=== PATIENT | male | born 1970 | race Two or more races ===

== ENCOUNTER 2024-12-27 20:30 | Emergency (ER) | payer SELFPAY ==
--- NOTE | ~2024-12-27 | XR_ITS ---
Portable chest x-ray Comparison: 12/27/2024 at 12:01 AM Clinical History: Chest pain Findings: Lungs are clear, without focal consolidation or pleural effusion. Cardiomediastinal silho uette is stable. Bones and soft tissues are unremarkable. Impression: Clear lungs. Reviewed, dictated and finalized at location . NCT WRITING INSTRUCTOR Impression: Clear lungs.
--- NOTE | 2024-12-27 20:32 | ECG_ITS ---
Test Date: 2024-12-27 20:48:46 Measurements Intervals [place] Rate: 81 P: 49 NC: 168 QRS: 27 QRSD: 95 T: 44 QT: 354 QTc: 411 Interpretive Statements SINUS RHYTHM INCOMPLETE RIGHT BUNDLE BRANCH BLOCK [90+ ms QRS DURATION, TERMINAL R IN V1/V2, 40+ ms S IN I/aVL/V4/V5/V6] Compared to ECG 12/26/2024 23:19:42 No significant changes Electronically Signed On 12-27-2024 21:58:42 [employer] by Delon Gonzalez M.D.
[2024-12-27 20:40] VITALS: BP 129/86; PULSE 87; RESP 19; TEMP 36.5; O2SAT 99
[2024-12-27 21:03] LABS: Basophils Absolute Auto 0.1 K/mm3 (0.0-0.1); Basophils Percent Auto 0.7 % (0.2-1.2); Eosinophils Absolute Auto 0.4 K/mm3 (0-0.3); Hematocrit 45.7 % (42.0-52.0); Hemoglobin 15.1 g/dL (14.0-18.0); Immature Granulocyte Absolute 0.04 K/mm3 (0.00-0.031); Immature Granulocyte Percent A 0.4 % (0-0.5); Lymphocytes Absolute Auto 3.57 K/mm3 (0.9-3.2); Lymphocytes Percent Auto 36.6 % (18.3-44.2); Mean Corpuscular Hemoglobin 28.8 pg (26-34); Monocytes Absolute Auto 0.7 K/mm3 (0.1-0.6); Monocytes Percent Auto 7.6 % (2.6-8.5); Neutrophils Percent Auto 50.7 % (45.5-73.1); Platelet Count Result 281 k/mm3 (150-375); Red Blood Count 5.25 M/mm3 (4.6-6.20); Red Cell Distribution Width 13.8 % (11.5-14.5); White Blood Count 9.8 K/mm3 (4.5-10.0)
[2024-12-27 21:16] LABS: Prothrombin Time 13.5 Seconds (11.1-14.7)
[2024-12-27 21:32] LABS: Alanine Aminotransferase 21 U/L (6-50); Albumin Level 4.4 g/dL (3.5-5.1); Alkaline Phosphatase 73 U/L (38-126); Anion Gap 12 mmol/L (4-12); Aspartate Amino Transferase 22 U/L (17-59); Bilirubin,Total 0.5 mg/dL (0.2-1.3); Blood Urea Nitrogen 18 mg/dL (9-20); Calcium 8.7 mg/dL (8.4-10.2); Carbon Dioxide 29 mmol/L (22-30); Chloride 100 mmol/L (98-107); Estimated CRCL calculation 116 ml/min; Estimated Glomerular Filt Rate > 60; Glucose 147 mg/dL (65-110); Lipase 99 U/L (23-300); Potassium 4.2 mmol/L (3.4-5.0); Sodium 141 mmol/L (137-145)
[2024-12-27 21:43] LABS: Troponin I < 0.012 ng/mL (0.000-0.034)
--- NOTE | 2024-12-27 23:25 | ED.CHESTPAIN ---
HPI - Chest Pain General Chief Complaint: Chest Pain Stated Complaint: Chest pain, left arm numbness, cough Time Seen by Provider: 12/27/24 22:52 Source: patient Mode of arrival: ambulatory Limitations: no limitations History of Present Illness HPI narrative: Patient is a 54-year-old male who presents the ED with report of left-sided chest pain. Patient reports pain has been intermittent over the last 2 years. He has not been seen previously for this pain. Described as pressure in his left-sided chest. Does radiate into his arm. Pain is typically worse with movement/raising of his left arm. Has been taking aspirin for the pain this week which does provide some improvement. States pain became worse yesterday. He presented to the ED yesterday and had a workup performed, but patient left without being seen by a provider. Returned today for evaluation. Does report recent cough over the last few days. Denies shortness of breath. Denies fevers. Denies lower extremity pain or swelling. Denies previous history of heart disease or blood clots. Related Data Allergies Allergy/AdvReac Type Severity Reaction Status Date / Time No Known Allergies Allergy Verified 12/27/24 23:46 Review of Systems Review of Systems: All systems reviewed & are unremarkable except as noted in HPI. All systems reviewed & are unremarkable except as noted in HPI and below Exam Narrative: GENERAL: Well appearing, obese with BMI of 31.7, non-toxic, in no acute distress. HEAD: Normocephalic, atraumatic. RESPIRATORY: Airway patent, respirations nonlabored. Clear to auscultation bilaterally, no rales, rhonchi, wheezing. CARDIOVASCULAR: Regular rate and rhythm without murmurs, rubs, or gallops. MUSCULOSKELETAL: Moves all extremities. No gross deformities. No peripheral edema. No calf tenderness. Mild tenderness to palpation over left anterior chest wall and left upper arm. SKIN: Warm, dry, normal color. NEURO: A&O X3. Speech clear. Cranial nerves II-XII grossly intact. No ataxic movements. PSYCHIATRIC: Appropriate mood and affect. Normal interaction. Course Vital Signs Vital signs: Vital Signs Temperature 97.7 F 12/27/24 20:40 Pulse Rate 87 12/27/24 20:40 Respiratory Rate 19 12/27/24 20:40 Blood Pressure 129/86 12/27/24 20:40 Pulse Oximetry 99 12/27/24 20:40 Oxygen Delivery Room Air 12/27/24 20:40 Temperature 97.7 F 12/27/24 20:40 Pulse Rate 83 12/28/24 01:04 Respiratory Rate 17 12/28/24 01:04 Blood Pressure 142/69 H 12/28/24 01:04 Pulse Oximetry 99 12/28/24 01:04 Oxygen Delivery Room Air 12/27/24 23:52 MDM - Chest Pain MDM Narrative Medical decision making narrative: Patient presented to ED with left-sided chest and left arm pain that has been present intermittently over the last 2 years. Pain worsening yesterday. Patient presented to the ED yesterday, but left without being seen. EKG with incomplete right bundle, no concerning ST changes. Troponin negative. Troponin yesterday was also undetectable. D-dimer within normal range. Chest x-ray interpreted by myself without acute focal findings. Remainder of basic laboratory studies are unremarkable. Patient with HEART score of 2 based on age and BMI. Discussed high likelihood of musculoskeletal etiology. Very low suspicion for ACS at this time given prolonged nature of sx's, worse with movement, reproducible, overall reassuring w/u yesterday and today. Recommended that patient have follow-up with PCP for further evaluation/further outpatient testing. Given strict return precautions. Patient and family in agreement with plan. Discharged in stable condition. Medical Records Data Attestation: I reviewed the patient's medical records. Lab Data Attestation: I reviewed the patient's lab results. 12/27/24 20:55 12/27/24 20:55 Labs: Lab Results 12/27/24 Range/Units 20:55 WBC 9.8 (4.5-10.0) K/mm3 RBC 5.25 (4.6-6.20) M/mm3 Hgb 15.1 (14.0-18.0) g/dL Hct 45.7 (42.0-52.0) % MCV 87.0 (80-100) fl MCH 28.8 (26-34) pg MCHC 33.0 (32-36) g/dl RDW 13.8 (11.5-14.5) % Plt Count 281 (150-375) k/mm3 MPV 9.0 (7.4-10.4) fl Immature Gran % (Auto) 0.4 (0-0.5) % Neut % (Auto) 50.7 (45.5-73.1) % Lymph % (Auto) 36.6 (18.3-44.2) % [place] % (Auto) 7.6 (2.6-8.5) % Eos % (Auto) 4.0 (0-4.4) % Baso % (Auto) 0.7 (0.2-1.2) % Lymph # (Auto) 3.57 H (0.9-3.2) K/mm3 [place] # (Auto) 0.7 H (0.1-0.6) K/mm3 Eos # (Auto) 0.4 H (0-0.3) K/mm3 Baso # (Auto) 0.1 (0.0-0.1) K/mm3 Abs Immat Gran (auto) 0.04 H (0.00-0.031) K/mm3 Absolute Neuts (auto) 5.0 (1.3-6.7) K/mm3 Absolute Nucleated RBC 0.000 (0.0-0.012) K/mm3 Nucleated RBC % 0.0 (0.0-0.2) % PT 13.5 (11.1-14.7) Seconds INR 1.0 APTT 24.0 (22.3-36.8) Seconds D-Dimer < 0.27 (<0.48) ug/mL Sodium 141 (137-145) mmol/L Potassium 4.2 (3.4-5.0) mmol/L Chloride 100 (98-107) mmol/L Carbon Dioxide 29 (22-30) mmol/L Anion Gap 12 (4-12) mmol/L BUN 18 (9-20) mg/dL Creatinine 0.70 (0.7-1.3) mg/dL Estim Creat Clear Calc 116 ml/min Estimated GFR > 60 (59 - ) Glucose 147 H (65-110) mg/dL Calcium 8.7 (8.4-10.2) mg/dL Total Bilirubin 0.5 (0.2-1.3) mg/dL AST 22 (17-59) U/L ALT 21 (6-50) U/L Alkaline Phosphatase 73 (38-126) U/L Troponin I < 0.012 (0.000-0.034) ng/mL Total Protein 7.0 (6.3-8.2) g/dL Albumin 4.4 (3.5-5.1) g/dL Lipase 99 (23-300) U/L Imaging Data Attestation: I personally reviewed and interpreted this imaging study as follows: My impression: CXR: No focal findings. ECG Data EKG #1: Attestation: I personally reviewed and interpreted this ECG as follows: ECG completion date: 12/27/24 ECG completion time: 20:48 EKG Interpretation: normal rate (81), sinus rhythm, no ST changes and RBBB (incomplete) Discharge Plan Discharge Clinical Impression: Anterior chest wall pain Patient Disposition: Home, Self-Care Condition: Stable Instructions: Antibiotic Form, Angina (ED), Chest Pain (ED) Additional Instructions: Your workup was reassuring against a cardiac cause of your chest pain. Your pain may be musculoskeletal. Recommend Tylenol/ibuprofen as needed for pain, limiting heavy lifting/strenuous activity. Follow-up closely with your primary care doctor for further evaluation. Return to ED if you experience worsening or severe symptoms, severe pain, difficulty breathing or feeling short of breath, pain or swelling in your legs, coughing blood, passing out, or any other symptoms of concern. Patient Language: Slovak Follow-up/Referrals: Christian Sykes DO [Physician] - (PRIMARY CARE) PHYSICIAN,STAFF [employer]ICER [Primary Care Provider] - Time of Disposition: 00:52 Quality HEART score for chest pain patients History: slightly suspicious ECG: normal Age: > 45 and < 65 years Risk factors: 1 or 2 risk factors Troponin: < or = to 1x normal limit Heart score: 2
[2024-12-27 23:34] VITALS: BP 150/71; PULSE 80; RESP 18; O2SAT 97
[2024-12-27 23:35] VITALS: PULSE 79
[2024-12-27] MEDS: KETOROLAC (*BKC) 60 MG/2 ML VIAL IM (23:46)
[2024-12-27 23:55] LABS: D Dimer < 0.27 ug/mL (<0.48)
[2024-12-28] MEDS: Please add drug allergy info to patient profile. 1 EACH XX (00:04)
[2024-12-28 01:03] VITALS: BP 142/69; PULSE 83; RESP 17; O2SAT 99
[2024-12-28 01:04] VITALS: BP 142/69; PULSE 83; RESP 17; O2SAT 99
== END 2024-12-28 01:05 | disposition home or self-care (01) ==
PROVIDERS: Student in an Organized Health Care Education/Training Program; Emergency Provider Physician Assistant
DX: R07.89 Other chest pain (principal); I45.10 Unspecified right bundle-branch block
CPT/HCPCS: 36415; 71045; 80053; 83690; 84484; 85025; 85380; 85610; 85730; 93005; 96372; 99284; J1885